=== PATIENT | male | born 1955 | race Caucasian/White ===

== ENCOUNTER 2019-12-31 18:15 | Emergency (ER) | payer OTHER ==
[~2019-12-31] VITALS: Ht 185.4 cm; Wt 85.3 kg
[2019-12-31 20:00] VITALS: BP 134/69
== END 2019-12-31 20:34 | disposition home or self-care (01) ==
LOC: ER 18:15
DX: K21.9 Gastro-esophageal reflux disease without esophagitis (principal); R07.9 Chest pain, unspecified